=== PATIENT | male | born 1940 | race Caucasian/White ===

== ENCOUNTER 2024-01-31 11:49 | Emergency (ER) | payer MEDICARE, SELFPAY ==
--- NOTE | ~2024-01-31 | XR_ITS ---
EXAMINATION: CR CERVICAL SPINE. CR THORACIC SPINE. CLINICAL INFORMATION: Atraumatic right neck pain and atraumatic back pain. COMPARISON: None available. TECHNIQUE: 3 views of the cervical spine. 3 views of the thoracic spine. FINDINGS: Cervical spine: On the lateral view, the inferior margin of the C6 vertebral body and the posterior elements are obscured by overlying soft tissues and bony structures. C7 is not visualized. However, the C7 vertebral body is seen on the swimmer's view obtained as part of the thoracic spine. No definite acute fracture or malalignment is seen. Craniocervical junction and atlantoaxial articulations are intact. Prevertebral soft tissues are normal in thickness. There is moderate degenerative disc disease at C4-5, C5-6, and C6-7 with disc space narrowing and vertebral endplate spurring and sclerosis. Moderate facet arthropathy is seen throughout the cervical spine bilaterally. Included lung apices are unremarkable. Thoracic spine: Minimal S-shaped thoracic scoliosis. Diffuse osteopenia. Moderate loss in height of the T11 and T12 vertebral bodies and mild loss in height of the T6 and T7 vertebral bodies noted, of uncertain chronicity. Judging by the associated moderate vertebral spondylosis in the lower thoracic spine, findings are likely on the chronic basis, though correlation with point tenderness is requested. Mild vertebral spondylosis seen throughout the mid and lower thoracic spine. XR/XR cervical spine 3V IMPRESSION: * No definite acute fracture of the cervical spine or thoracic spine. * Moderate degenerative disc disease and facet arthropathy in the mid and lower thoracic spine. * Diffuse osteopenia. * Moderate loss in height of T11 and T12 vertebral bodies and mild loss in height of T6 and T7 vertebral bodies, of uncertain chronicity, but favored to be chronic given associated vertebral endplate spurring. Close clinical correlation with point tenderness is recommended to exclude an acute fracture.
[2024-01-31 12:23] VITALS: BP 164/81; PULSE 82; RESP 16; TEMP 36.4; O2SAT 97; BMI 28.3
--- NOTE | 2024-01-31 12:25 | ED_ITS ---
HPI - General Adult General Chief complaint: Back Pain/Injury Stated complaint: Back pain Time Seen by Provider: 01/31/24 14:29 Source: patient Mode of arrival: ambulatory Limitations: no limitations History of Present Illness ED Provider: Alona Jones PA-C HPI narrative: This is a 83 yo male pmh of stroke, OA, Afib on thinnerspresenting with right sided neck pain radiating down the right shoulder and upper back pain for a few weeks that has worsened in severity x3 days. Patient reports the pain is constant and he has not been able to sleep because of it. Pain worse w/ movment better at rest. Patient reports he tried aleve and nervive, as well as heat at home but these have not improved the pain. Denies numbness, tingling, weakness, fever, chills, sob, chest pain, changes to bowel/bladder habits, difficulty with ambulation. Denies injury or fall. On blood thinners Related Data Previous Rx's ?Medication ?Instructions ?Recorded acetaminophen 325 mg capsule 325 mg PO Q4H PRN pain #30 caps 01/31/24 (Tylenol) cyclobenzaprine 10 mg tablet 10 mg PO BEDTIME PRN muscle spasm 01/31/24 #7 tabs Allergies Allergy/AdvReac Type Severity Reaction Status Date / Time pseudoephedrine Allergy Unknown Verified 01/31/24 12:27 [From [facility]] Review of Systems Review of Systems: Yes all other systems are reviewed and are negative [facility] Past Medical History Attestation statement: The following information was validated with the patient. Source: old records reviewed and nursing notes reviewed Social History Social History Advance Directives: No Advance Directives Information Provided: Yes Do you have a plan to hurt others: No Plan Physical Exam ED Vital Signs: Vital Signs - 24 hr 01/31/24 12:23 Temperature 97.6 F Pulse Rate 82 Respiratory Rate 16 Blood Pressure 164/81 H Pulse Oximetry 97 Oxygen Delivery Method Room Air BMI result Body Mass Index 28.3 vss. HTN likely secondary to pain Appearance: Alert.? Oriented X3.? No acute distress.? Head: Normocephalic, atraumatic, no step-offs or deformities Neck: Tenderness to palpation of right sided paraspinous muscles. Full ROM, discomfort with neck extension. Small [id number] nodule on the posterior aspect og neck. Not draining when poked with needle. CVS: Normal heart rate and rhythm.? Pulses normal.? Respiratory: No respiratory distress.? Breath sounds normal.? Abdomen: Soft and nontender.? Skin: Skin warm and dry.? Normal skin color.? Normal skin turgor.? Extremities: No lower extremity edema.? No calf ttp. 5/5 strength to bilateral upper and lower extremities Back: Mild tenderness to palpation of right shoulder and upper back. No midline tenderness, no C-spine tenderness, full range of motion Neuro: Oriented X 3.? No motor deficit.? No sensory deficit. CN 2-12 intact Ambulating with steady gait. Course Course Course Narrative: This is a Rapid Medical Examination (RME) performed by Mau Sy PA-C in triage. Full HPI, ROS, assessment and treatment plan per primary provider in the Main ED. 83 yo male hx of OA here for eval of right neck and upper back pain x3 days after exercising. extending his c spine exacerbates pain.took aleve and nervive, ice/heat at home without relief. admits he hasnt been able to sleep d/t pain. no trauma or injury. denies numbness/tingling/weakness of the UEs. denies dizziness, RIGGS, vision changes. no cspine tenderness or step off deformity. ambulating with steady gait. Plan: imaging ordered Reevaluation(s) Reevaluation #1: X-ray no definitive acute fracture of the cervical spine or thoracic spine. Moderate degenerative disc disease and facet arthropathy in the mid and lower thoracic spine. Diffuse osteopenia. Moderate loss of height of T11 and T12 and mild loss of height of T6 and T7 vertebral bodies uncertain chronicity likely chronic however given vertebral endplate spurring. Patient's pain is mostly in the cervical spine I do not suspect this to be an acute injury. This presentation is most consistent with cervical radiculopathy. At this time will give him pain meds, Lidoderm patch. Educated patient on diagnosis and treatment plan, answered all question, patient verbalizes understanding. At this time patient will be discharged home, advised to return with new or worsening symptoms. Educated on worrisome signs and symptoms and when to return. At this time I feel comfortable discharge home. Time: 16:50 Medications Administered Discontinued Medications Generic Name Dose Route Start Last Admin Trade Name Freq PRN Reason Stop Dose Admin Acetaminophen 975 mg 01/31/24 15:02 01/31/24 16:16 Acetaminophen 325 Mg Tablet PO 01/31/24 15:03 975 mg ONCE ONE Administration Lidocaine 1 patch 01/31/24 15:03 01/31/24 16:16 Lidocaine 4 % Patch Adh..Patch TRANSDERMA 01/31/24 15:04 1 patch ONCE ONE Administration Protocol Medical Decision Making Medical Decision Making MDM Narrative: 1500 83 yo male pmh OA presents with atraumatic right sided neck pain radiating to the right shoulder and upper back for a few weeks, worsening x 3 days. PE: Neck: Tenderness to palpation of right sided paraspinous muscles. Full ROM, discomfort with neck extension. Back: Mild tenderness to palpation of right shoulder and upper back. No midline tenderness, no C-spine tenderness, full range of motion. Differential: Neck strain vs cervical radiculopathy. Unlikely fracture, epidural abscess, meningitis, encephalitis, cauda equina, cord compresion, cervical myelopathy, atypical presentation of acs, arterial or venous occlusion of UE b/l Plan: Tylenol, lidocaine patch, imaging pending Differential Diagnosis Differential Diagnoses: The differential diagnosis associated with the presentation includes (Neck strain vs cervical radiculopathy. Unlikely fracture, epidural abscess, meningitis, encephalitis, cauda equina. ) Differential: Neck strain vs cervical radiculopathy. Unlikely fracture, epidural abscess, meningitis, encephalitis, cauda equina, cord compresion, cervical myelopathy, atypical presentation of acs, arterial or venous occlusion of UE b/l Admission/Observation Consideration of admission/observation: Escalation of care including admission/observation considered (unlikely) Independent Interpretation I performed an independent interpretation of an: EKG (Vent rate 80 a fib nored. Normal qt/qtc. No signs of ischemia ) and Plain X-Ray (XR/XR thoracic spine 3V IMPRESSION: * No definite acute fracture of the cervical spine or thoracic spine. * Moderate degenerative disc disease and facet arthropathy in the mid and lower thoracic spine. * Diffuse osteopenia. * Moderate loss in height of T11 and T12 vertebral bodies and mild loss ) Radiology Impression Discussion of test interpretation with radiology: I have reviewed the radiologist's reading. Chronic Conditions Patient?s care impacted by: Other (OA) Discharge Plan Discharge Clinical Impression: Cervical radiculopathy, Skin abnormality Patient Disposition: Home, Self-Care Instructions: Cervical Radiculopathy (ED) Additional Instructions: Take your medications as prescribed. If you were prescribed antibiotics today, it is important that you take your medication to their entirety, do not skip any doses, do not finish them early. Follow-up with your primary care provider this week. Return to the emergency department with new or worsening symptoms. Such as fevers, chills, chest pain, shortness of breath, nausea, vomiting, dizziness, headache, vision changes, lethargy In case of emergency call 911 Have your PCP follow the skin nodule on your neck. XR/XR cervical spine 3V IMPRESSION: * No definite acute fracture of the cervical spine or thoracic spine. * Moderate degenerative disc disease and facet arthropathy in the mid and lower thoracic spine. * Diffuse osteopenia. * Moderate loss in height of T11 and T12 vertebral bodies and mild loss in height of T6 and T7 vertebral bodies, of uncertain chronicity, but favored to be chronic given associated vertebral endplate spurring. Close clinical correlation with point tenderness is recommended to exclude an acute fracture. Prescriptions: New cyclobenzaprine 10 mg tablet 10 mg PO BEDTIME PRN (Reason: muscle spasm) Qty: 7 0RF acetaminophen [Tylenol] 325 mg capsule 325 mg PO Q4H PRN (Reason: pain) Qty: 30 0RF Referrals: [facility] [Provider Group] - 1 week Didi Mendoza MD [Primary Care Provider] - 2 days Print Language: Tanzanian
--- NOTE | 2024-01-31 15:35 | ECG_ITS ---
Test Reason : RIGHT SHOULDER PAIN Blood Pressure : / mmHG Vent. Rate : 080 BPM Atrial Rate : 000 BPM P-R Int : 000 ms QRS Dur : 124 ms QT Int : 406 ms P-R-T Axes : 000 -07 088 degrees QTc Int : 468 ms Atrial fibrillation Left bundle branch block Abnormal ECG No previous ECGs available Referred By: Alona Jones Electronically Signed By:JAC MINOR MD
[2024-01-31] MEDS: Acetaminophen 325 MG TABLET 975 MG PO (16:16)
[2024-01-31] MEDS: Lidocaine 4 % Patch ADH..PATCH 1 PATCH TRANSDERMA (16:16)
[2024-01-31 17:23] VITALS: BP 172/86; PULSE 82; RESP 18; TEMP 36.5; O2SAT 96
== END 2024-01-31 17:24 | disposition home or self-care (01) ==
PROVIDERS: Emergency Provider Internal Medicine; PCP Internal Medicine
DX: M54.12 Radiculopathy, cervical region (principal); M54.2 Cervicalgia; Q82.9 Congenital malformation of skin, unspecified; M54.9 Dorsalgia, unspecified; I48.91 Unspecified atrial fibrillation; Z86.73 Personal history of transient ischemic attack (TIA), and cerebral infarction without residual deficits; Z79.01 Long term (current) use of anticoagulants
CPT/HCPCS: 72040; 72072; 93005; 99283

== ENCOUNTER → 2024-01-31 15:35 | Outpatient (BNV) | payer MEDICARE, SELFPAY | PROVIDERS: Emergency Provider Internal Medicine; PCP Internal Medicine; Visit Provider Internal Medicine Cardiovascular Disease | DX: I44.7 Left bundle-branch block, unspecified (principal); R94.31 Abnormal electrocardiogram [ECG] [EKG] | CPT/HCPCS: 93010 ==